=== PATIENT | male | born 1990 | race Two or more races ===

== ENCOUNTER 2017-02-24 09:34 | Emergency (ER) | payer OTHER ==
[2017-02-24 09:45] VITALS: BP 132/82
[2017-02-24] MEDS ORDERED: Ketorolac 60 MG/2 ML SDV IM ONE (10:08)
--- NOTE | 2017-02-24 10:23 | EDM.PDOC ---
ED HPI LOWER BACK PAIN/INJURY - General Chief Complaint: Back Pain or Injury Stated Complaint: back pain Time Seen by Provider: 02/24/17 10:07 Source of Information: Reports: Patient History Limitations: Reports: No limitations - History of Present Illness INITIAL COMMENTS - FREE TEXT/NARRATIVE: PT STATES WHILE HE WAS WORKING YESTERDAY, FELL BACKWARD AND LANDED ON HARD MACHINERY. PAIN TO LOWER BACK. DENIES HEAD INJURY, LOC, ABD PAIN, TESTICULAR PAIN, N/V, OR H/O BACK PROBLEMS Symptom Onset Date: 02/24/17 Symptom Onset Time: 17:30 Timing/Duration: Reports: Day(s): Location: Reports: lower Quality: Reports: Ache Severity: mild Place of Occurrence: work Improves with: Reports: None Worsens with: Reports: Movement Context: Reports: fall Associated Symptoms: Reports: Denies symptoms. Denies: Fever/chills, Nausea/ vomiting, Problems urinating - Related Data Allergies/ADRs: Allergies Allergy/AdvReac Type Severity Reaction Status Date / Time No Known Drug Allergies Allergy Cannot Verified 02/24/17 09:45 Remember Home Meds: Home Meds . [No Known Home Meds] 02/24/17 [History] Past Medical History - Past Surgical History Head Surgeries/Procedures: Reports: None Social & Family History - Family History Family Medical History: Noncontributory - Tobacco Use Smoking Status *Q: Current Every Day Smoker Years of Tobacco use: 2 Packs/Tins Daily: 1 Used Tobacco, but Quit: No Second Hand Smoke Exposure: Yes - Caffeine Use Caffeine Use: Reports: Coffee, Energy drinks, Soda - Recreational Drug Use Recreational Drug Use: No ED ROS GENERAL - Review of Systems Review Of Systems: ROS reveals no pertinent complaints other than HPI. Constitutional: Reports: no symptoms HEENT: Reports: No symptoms Respiratory: Reports: No Symptoms Cardiovascular: Reports: No symptoms Endocrine: Reports: no symptoms GI/Abdominal: Reports: No symptoms : Reports: no symptoms Musculoskeletal: Reports: back pain Skin: Reports: no symptoms Neurological: Reports: No Symptoms Psychiatric: Reports: No symptoms Hematologic/Lymphatic: Reports: no symptoms Immunologic: Reports: no symptoms ED EXAM,LOWER BACK PAIN/INJURY - Physical Exam Exam: See Below Exam Limited By: No limitations General Appearance: alert, WD/WN, no apparent distress Nose: normal inspection, no blood Throat/Mouth: Normal inspection, Normal oropharynx, No airway compromise Head: atraumatic, normocephalic Neck: normal inspection, supple, non-tender, full range of motion Respiratory/Chest: no respiratory distress, lungs clear, normal breath sounds Cardiovascular: regular rate, rhythm, no murmur GI/Abdominal: normal bowel sounds, soft, non tender Back Exam: paraspinal tenderness (NO ERYTHEMA, EDEMA, OR ECCHYMOSIS NOTED). No : CVA tenderness (L), CVA tenderness (R) Extremities: normal inspection, normal range of motion, non-tender Neurological: alert, normal mood/affect, oriented x 3 Psychiatric: normal affect, normal mood Skin Exam: Warm, Dry, Intact, Normal color, No rash Lymphatic: no adenopathy Course - Vital Signs Last Recorded V/S: Last Vital Signs Temp 98.5 F 02/24/17 09:38 Pulse 64 02/24/17 09:38 Resp 16 02/24/17 09:38 BP 132/82 02/24/17 09:38 Pulse Ox 99 02/24/17 09:38 - Orders/Labs/Meds Orders: Active Orders 24 hr Category Date Time Status Lumbar Spine 2 or 3V [CR] Stat Exams 02/24/17 09:47 Ordered Sacrum Coccyx Min 2V [CR] Stat Exams 02/24/17 09:47 Ordered Ketorolac [Toradol] Med 02/24/17 10:08 Once 60 mg IM ONETIME ONE Medication Orders Ketorolac Tromethamine (Toradol) 60 mg IM ONETIME ONE Stop: 02/24/17 10:09 Meds: Medications Generic Name Dose Route Start Last Admin Trade Name Eduar PRN Reason Stop Dose Admin Ketorolac Tromethamine 60 mg 02/24/17 10:08 Toradol IM 02/24/17 10:09 ONETIME ONE - Radiology Interpretation Free Text/Narrative:: XRAY NO ACUTE FRACTURE - Re-Assessments/Exams Free Text/Narrative Re-Assessment/Exam: 02/24/17 10:32 PT AFEBRILE, NONTOXIC APPEARING, PAIN MOSTLY RELIEVED Departure - Departure Time of Disposition: 10:38 Disposition: Home, Self-Care 01 Condition: good Clinical Impression: Back pain due to injury Instructions: Back Pain, Adult, [id number] Forms: ED Department Discharge Additional Instructions: ICE / REST / LIMIT ACTIVITY / FOLLOW UP WITH PCP IN 2-3 DAYS OR RETURN TO ER IF SYMPTOMS PERSIST - My Orders Last 24 Hours: My Active Orders 02/24/17 09:47 Lumbar Spine 2 or 3V [CR] Stat Sacrum Coccyx Min 2V [CR] Stat 02/24/17 10:08 Ketorolac [Toradol] 60 mg IM ONETIME ONE - Assessment/Plan Last 24 Hours: My Active Orders 02/24/17 09:47 Lumbar Spine 2 or 3V [CR] Stat Sacrum Coccyx Min 2V [CR] Stat 02/24/17 10:08 Ketorolac [Toradol] 60 mg IM ONETIME ONE Assessment:: LOW BACK PAIN Plan: ICE / REST / LIMIT ACTIVITY F/U UP WITH PCP.
== END 2017-02-24 10:45 | disposition home or self-care (01) ==
LOC: KA.ED 09:34
DX: S39.92XA Unspecified injury of lower back, initial encounter (principal); F17.210 Nicotine dependence, cigarettes, uncomplicated; W18.09XA Striking against other object with subsequent fall, initial encounter
CPT/HCPCS: 72100; 72220; 96372; 99283; J1885

== ENCOUNTER 2017-08-04 22:00 | Emergency (ER) | payer MEDICAID, OTHER ==
[2017-08-04] MEDS ORDERED: Ketorolac 60 MG/2 ML SDV IM ONE (22:19)
[2017-08-04] MEDS ORDERED: Diazepam 5 MG Tab PO ONE (22:30)
--- NOTE | 2017-08-04 22:35 | EDM.PDOC ---
ED HPI GENERAL MEDICAL PROBLEM - General Chief Complaint: Back Pain or Injury Stated Complaint: BACK PAIN Time Seen by Provider: 08/04/17 22:29 Source of Information: Reports: Patient History Limitations: Reports: No Limitations - History of Present Illness INITIAL COMMENTS - FREE TEXT/NARRATIVE: PT STATES A FEW DAYS AGO HE INJURED BACK AT WORK WHILE PULLING EQUIPMENT. PAIN HAS PERSISTED. TODAY HE BENT OVER TO BASE REMOVER SOMETHING AND FELL TO KNEES IN PAIN. DENIES ABD PAIN, TESTICULAR PAIN, FEVER, SADDLE ANESTHESIA, BOWEL OR URINARY INCONT, OR RADICULAR PAIN Onset: Today Duration: Hour(s): Location: Reports: Back Quality: Reports: Sharp Severity: Moderate Improves with: Reports: None Worsens with: Reports: Movement Context: Reports: Lifting Associated Symptoms: Reports: No Other Symptoms - Related Data Allergies Allergy/AdvReac Type Severity Reaction Status Date / Time No Known Drug Allergies Allergy Cannot Verified 08/04/17 22:16 Remember Home Meds: Home Meds Methocarbamol [Robaxin-750] 750 mg PO Q6HR #20 tablet 08/04/17 [Rx] Prednisone [IJD: predniSONE] 20 mg PO WITHBREAKFAST #7 tab 08/04/17 [Rx] Past Medical History - Past Surgical History Head Surgeries/Procedures: Reports: None Social & Family History - Family History Family Medical History: Noncontributory - Tobacco Use Smoking Status *Q: Current Every Day Smoker Years of Tobacco use: 2 Packs/Tins Daily: 1 Used Tobacco, but Quit: No Second Hand Smoke Exposure: Yes - Caffeine Use Caffeine Use: Reports: Coffee, Energy Drinks, Soda - Recreational Drug Use Recreational Drug Use: No ED ROS GENERAL - Review of Systems Review Of Systems: ROS reveals no pertinent complaints other than HPI. Constitutional: Reports: No Symptoms HEENT: Reports: No Symptoms Respiratory: Reports: No Symptoms Cardiovascular: Reports: No Symptoms Endocrine: Reports: No Symptoms GI/Abdominal: Reports: No Symptoms : Reports: No Symptoms Musculoskeletal: Reports: Back Pain Skin: Reports: No Symptoms Neurological: Reports: No Symptoms Psychiatric: Reports: No Symptoms Hematologic/Lymphatic: Reports: No Symptoms Immunologic: Reports: No Symptoms ED EXAM,LOWER BACK PAIN/INJURY - Physical Exam Exam: See Below Exam Limited By: No Limitations General Appearance: Alert, WD/WN, Mild Distress Throat/Mouth: Normal Inspection, Normal Oropharynx, No Airway Compromise Head: Atraumatic, Normocephalic Neck: Normal Inspection Respiratory/Chest: No Respiratory Distress GI/Abdominal: Normal Bowel Sounds, Soft, Non-Tender Back Exam: Muscle Spasm, Paraspinal Tenderness. No: CVA Tenderness (L), CVA Tenderness (R), Vertebral Tenderness Extremities: Normal Inspection Neurological: Alert, Normal Mood/Affect, Normal Dorsiflexion, Normal Plantar Flexion, Oriented x 3 Psychiatric: Normal Affect, Normal Mood Skin Exam: Warm, Dry, Intact, Normal Color, No Rash Course - Orders/Labs/Meds Orders: Active Orders 24 hr Category Date Time Status Lumbar Spine 2 or 3V [CR] Stat Exams 08/04/17 22:17 Ordered Sacrum Coccyx Min 2V [CR] Stat Exams 08/04/17 22:19 Stop Req Diazepam [Valium] Med 08/04/17 22:30 Once 10 mg PO ONETIME ONE Medication Orders Diazepam (Valium.) 10 mg PO ONETIME ONE Stop: 08/04/17 22:31 Meds: Medications Generic Name Dose Route Start Last Admin Trade Name Freq PRN Reason Stop Dose Admin Diazepam 10 mg 08/04/17 22:30 Valium. PO 08/04/17 22:31 ONETIME ONE Discontinued Medications Generic Name Dose Route Start Last Admin Trade Name Freq PRN Reason Stop Dose Admin Ketorolac Tromethamine 60 mg 08/04/17 22:19 Toradol IM 08/04/17 22:20 ONETIME ONE - Radiology Interpretation Free Text/Narrative:: LUMBAR XRAY SHOWS NO ACUTE PROCESS - Re-Assessments/Exams Free Text/Narrative Re-Assessment/Exam: 08/04/17 23:12 PT AFEBRILE, NONTOXIC APPEARING, PAIN MOSTLY RELIEVED, ROM IMPROVED Departure - Departure Time of Disposition: 23:12 Disposition: Home, Self-Care 01 Condition: Good Clinical Impression: Lumbar strain Qualifiers: Encounter type: initial encounter Qualified Code(s): S39.012A - Strain of muscle, fascia and tendon of lower back, initial encounter Back pain Qualifiers: Back pain location: low back pain Chronicity: acute Back pain laterality: bilateral Sciatica presence: without sciatica Qualified Code(s): M54.5 - Low back pain - Discharge Information Instructions: Muscle Strain, [id number], Back Pain, Adult, [id number], Back Injury Prevention, [id number], Chronic Back Pain Referrals: PCP,None [Primary Care Provider] - Additional Instructions: FOLLOW UP WITH PCP IN NEXT 2-3 DAYS. RETURN TO ER SOONER IF SYMPTOMS CONTINUE - My Orders Last 24 Hours: My Active Orders 08/04/17 22:17 Lumbar Spine 2 or 3V [CR] Stat 08/04/17 22:19 Sacrum Coccyx Min 2V [CR] Stat 08/04/17 22:30 Diazepam [Valium] 10 mg PO ONETIME ONE - Assessment/Plan Last 24 Hours: My Active Orders 08/04/17 22:17 Lumbar Spine 2 or 3V [CR] Stat 08/04/17 22:19 Sacrum Coccyx Min 2V [CR] Stat 08/04/17 22:30 Diazepam [Valium] 10 mg PO ONETIME ONE Assessment:: low back pain Plan: F/U WITH PCP
[2017-08-04] MEDS ORDERED: Diazepam 5 MG Tab ONE (22:46)
[2017-08-04 22:54] VITALS: BP 124/73
[2017-08-04] MEDS ORDERED: Acetaminophen/oxyCODONE 325-5 MG Tab PO ONE (23:08)
== END 2017-08-04 23:20 | disposition home or self-care (01) ==
LOC: KA.ED 22:00
DX: S39.012A Strain of muscle, fascia and tendon of lower back, initial encounter (principal); F17.210 Nicotine dependence, cigarettes, uncomplicated; X50.0XXA Overexertion from strenuous movement or load, initial encounter
CPT/HCPCS: 72100; 96372; 99283; A9270; J1885

== ENCOUNTER 2018-05-29 21:08 | Emergency (ER) | payer OTHER ==
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
[2018-05-29] MEDS: Acetaminophen/HYDROcodone 325-5 MG Tab PO ONE (22:24)
[2018-05-29] MEDS: Ketorolac 60 MG/2 ML SDV IM ONE (22:24)
== END 2018-05-29 23:05 | disposition home or self-care (01) ==
LOC: KA.ED 21:08
DX: S16.1XXA Strain of muscle, fascia and tendon at neck level, initial encounter (principal); V87.7XXA Person injured in collision between other specified motor vehicles (traffic), initial encounter
CPT/HCPCS: 72040; 72100; 99284; A9270-GY

== ENCOUNTER 2018-05-31 15:05 | Emergency (ER) | payer OTHER ==
[2018-05-31 15:16] VITALS: BP 117/89
[2018-05-31] MEDS ORDERED: methylPREDNISolone Sodium Succinate 125 MG/2 ML SDV IM ONE (15:29)
[2018-05-31] MEDS ORDERED: LORazepam 2 MG/ML SDV IM ONE (15:30)
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
[2018-05-31] MEDS ORDERED: traMADol 50 MG Tab PO SCH (15:45)
[2018-05-31] MEDS ORDERED: traMADol 50 MG Tab ONE (16:01)
== END 2018-05-31 16:15 | disposition home or self-care (01) ==
LOC: KA.ED 15:05
DX: S40.021A Contusion of right upper arm, initial encounter (principal); M54.12 Radiculopathy, cervical region; V49.50XA Passenger injured in collision with unspecified motor vehicles in traffic accident, initial encounter
CPT/HCPCS: 73080-RT; 96372; 99283; A9270-GY; J2060; J2930

== ENCOUNTER 2020-01-04 10:41 | Emergency (ER) | payer SELFPAY ==
--- NOTE | 2020-01-04 10:54 | EDM.PDOC ---
ED HPI GENERAL MEDICAL PROBLEM - General Chief Complaint: Headache Stated Complaint: HEADACHE Time Seen by Provider: 01/04/20 10:43 Source of Information: Reports: Patient - History of Present Illness INITIAL COMMENTS - FREE TEXT/NARRATIVE: 29 YO HM presents to ER complaining of headache x 3 days. Pt reports headache is behind his eyes and mostly frontal SANCHEZ. Pt denies neck pain, no nausea/ vomiting. Pt reports he thinks he's getting sick with the flu. Pt reports mild runny nose with nonproductive cough and some throat irritation. Pt denies any recent head injuries. Pt is not taking any anticoagulation and rates his pain as 4/10 but unrelieved by Tylenol. Last dose of Tylenol was 9am today. Pt denies any sick contacts, no chest pain or shortness of breath. Onset Date: 01/02/20 Duration: Day(s): (3) Location: Reports: Head Quality: Reports: Ache Severity: Mild Improves with: Reports: Medication Worsens with: Reports: None Associated Symptoms: Reports: Cough, Headaches, Malaise. Denies: Confusion, Nausea/Vomiting, Seizure, Shortness of Breath, Syncope, Weakness Treatments MEDICAL CHEMIST: Reports: Acetaminophen - Related Data Allergies Allergy/AdvReac Type Severity Reaction Status Date / Time No Known Drug Allergies Allergy Cannot Verified 05/29/18 21:59 Remember Home Meds: Home Meds Cyclobenzaprine [Flexeril] 10 mg PO TID PRN #15 tab 05/29/18 [Rx] predniSONE [Prednisone] 20 mg PO DAILY #15 tablet 05/31/18 [Rx] traMADol HCl [Ultram] 50 mg PO Q6HR PRN #15 tablet 05/31/18 [Rx] Oseltamivir [Tamiflu] 75 mg PO BID #10 cap 01/04/20 [Rx] Past Medical History - Past Health History Medical/Surgical History: Denies Medical/Surgical History - Past Surgical History Head Surgeries/Procedures: Reports: None Social & Family History - Family History Family Medical History: Noncontributory - Caffeine Use Caffeine Use: Reports: Coffee, Energy Drinks, Soda ED ROS GENERAL - Review of Systems Review Of Systems: See Below Constitutional: Reports: Malaise HEENT: Reports: Rhinitis, Throat Pain ("scratchy") Respiratory: Reports: Cough Cardiovascular: Reports: No Symptoms Endocrine: Reports: No Symptoms GI/Abdominal: Reports: No Symptoms : Reports: No Symptoms Musculoskeletal: Reports: No Symptoms Skin: Reports: No Symptoms Neurological: Reports: Headache Psychiatric: Reports: No Symptoms Hematologic/Lymphatic: Reports: No Symptoms Immunologic: Reports: No Symptoms - Physical Exam Exam: See Below Exam Limited By: No Limitations General Appearance: Alert, WD/WN, No Apparent Distress Eye Exam: Bilateral Eye: EOMI, PERRL Ears: Normal External Exam, Normal Canal, Hearing Grossly Normal, Normal TMs Nose: Clear Rhinorrhea Throat/Mouth: Normal Inspection, Normal Lips, Normal Teeth, Normal Gums, Normal Oropharynx, Normal Voice, No Airway Compromise Head Exam: Atraumatic, Normocephalic Neck: Normal Inspection, Supple, Non-Tender, Full Range of Motion Respiratory/Chest: No Respiratory Distress, Lungs Clear, Normal Breath Sounds, No Accessory Muscle Use, Chest Non-Tender Cardiovascular: Normal Peripheral Pulses, Regular Rate, Rhythm, No Edema, No Gallop, No JVD, No Murmur, No Rub GI/Abdominal: Normal Bowel Sounds, Soft, Non-Tender, No Organomegaly, No Distention, No Abnormal Bruit, No Mass Neuro Exam (Abbreviated): Alert, Oriented, CN II-XII Intact, Normal Cognition, Normal Gait, Normal Reflexes, No Motor/Sensory Deficits Back Exam: Normal Inspection, Full Range of Motion, NT Extremities: Normal Inspection, Normal Range of Motion, Non-Tender, No Pedal Edema, Normal Capillary Refill Psychiatric: Normal Affect, Normal Mood Skin Exam: Warm, Dry, Intact, Normal Color, No Rash Course - Orders/Labs/Meds Orders: Active Orders 24 hr Category Date Time Status INFLUENZA A+B AG SCREEN [RM] Stat Lab 01/04/20 10:56 Ordered Meds: Medications Discontinued Medications Generic Name Dose Route Start Last Admin Trade Name Freq PRN Reason Stop Dose Admin Diphenhydramine HCl 50 mg 01/04/20 10:56 Benadryl PO 01/04/20 10:57 ONETIME ONE Ketorolac Tromethamine 60 mg 01/04/20 10:56 Toradol IM 01/04/20 10:57 ONETIME ONE - Radiology Interpretation Free Text/Narrative:: influenza B- Positive Departure - Departure Time of Disposition: 11:26 Disposition: Home, Self-Care 01 Condition: Good Clinical Impression: Influenza B, Viral URI - Discharge Information Prescriptions: Oseltamivir [Tamiflu] 75 mg PO BID #10 cap Instructions: Influenza, Adult, [id number], Viral Respiratory Infection, Easy -To-Read Forms: ED Department Discharge Additional Instructions: 1. Discharge home 2. tamiflu 75mg twice/day x 5 days 3. motrin 600mg every 6 hours as needed 4. tylenol 1000mg every 6 hours as needed 5. zyrtec 10mg in am 6. benadryl 50mg at night as needed 7. plenty of fluids 8. if no improvement next 72 hours then recheck with PCP 9. return to ER for worsening symptoms Sepsis Event Note - Focused Exam Date Exam was Performed: 01/04/20 Time Exam was Performed: 11:24 - My Orders Last 24 Hours: My Active Orders 01/04/20 10:56 INFLUENZA A+B AG SCREEN [RM] Stat - Assessment/Plan Last 24 Hours: My Active Orders 01/04/20 10:56 INFLUENZA A+B AG SCREEN [RM] Stat Assessment:: 1. Influenza B 2. Viral URI Plan: 1. Discharge home 2. tamiflu 75mg twice/day x 5 days 3. motrin 600mg every 6 hours as needed 4. tylenol 1000mg every 6 hours as needed 5. zyrtec 10mg in am 6. benadryl 50mg at night as needed 7. plenty of fluids 8. if no improvement next 72 hours then recheck with PCP 9. return to ER for worsening symptoms
[2020-01-04] MEDS ORDERED: diphenhydrAMINE 25 MG Cap PO ONE (10:56)
[2020-01-04] MEDS ORDERED: Ketorolac 60 MG/2 ML SDV IM ONE (10:56)
[2020-01-04 11:28] VITALS: BP 134/85; PULSE 77
== END 2020-01-04 11:45 | disposition home or self-care (01) ==
LOC: KA.ED 10:41
DX: J10.1 Influenza due to other identified influenza virus with other respiratory manifestations (principal)
CPT/HCPCS: 87804; 96372; 99283; 99284; A9270-GY; J1885

== ENCOUNTER 2022-11-26 08:29 | Emergency (ER) | payer BC ==
[2022-11-26 08:57] VITALS: BP 134/87; PULSE 80
[2022-11-26] MEDS: Ibuprofen 600 MG Tab PO ONE (09:20)
[2022-11-26] MEDS: Acetaminophen 500 MG Tab PO ONE (09:20)
== END 2022-11-26 09:42 | disposition home or self-care (01) ==
LOC: KA.ED 08:29
DX: S93.402A Sprain of unspecified ligament of left ankle, initial encounter (principal); F17.210 Nicotine dependence, cigarettes, uncomplicated; W10.9XXA Fall (on) (from) unspecified stairs and steps, initial encounter; Y92.009 Unspecified place in unspecified non-institutional (private) residence as the place of occurrence of the external cause
CPT/HCPCS: 29515; 73610-LT; 99283; A9270-GY

== ENCOUNTER 2023-06-20 17:19 | Emergency (ER) | payer OTHER, BC ==
[2023-06-20] MEDS: Diphtheria,Pertussis(Acell),Tetanus Vaccine 0.5 ML Syringe IM ONE (18:16)
[2023-06-20 18:26] VITALS: BP 137/74; PULSE 74
[2023-06-20] MEDS: ceFAZolin 1 GM Vial IVPUSH ONE (18:42)
[2023-06-20] MEDS: Water For Injection, Sterile 20 ML ONE (18:48)
== END 2023-06-20 19:10 ==
LOC: KA.ED 17:19
DX: S11.92XA Laceration with foreign body of unspecified part of neck, initial encounter (principal); Z23 Encounter for immunization; W22.09XA Striking against other stationary object, initial encounter
CPT/HCPCS: 70360; 90471; 90715; 96374; 99283; 99284-25; J0690